=== PATIENT | female | born 1990 | race Caucasian/White ===

== ENCOUNTER 2019-02-06 07:03 | Outpatient (CLI) | payer OTHER ==
--- NOTE | 2019-02-06 08:08 | MRI ---
MRI lumbar spine noncontrast: HISTORY: Lumbar radicular pain. Symptoms times a few months COMPARISON: None FINDINGS: Appropriate T1 marrow signal intensity lumbar vertebra. Lumbar spine vertebral body height is [place]. There is no fracture. No significant STIR hyperintensity to suggest vertebral body edema or ligamentous injury Appropriate signal intensity paraspinal muscles Visualized solid organs of appropriate signal intensity Conus medullaris terminates at the inferior aspect of L1 T12-L1:Adequate disc hydration. No significant central canal stenosis or neural foraminal narrowing L1-L2:Adequate disc hydration. No significant central canal stenosis or neural foraminal narrowing L2-L3:Adequate disc hydration. No significant central canal stenosis or neural foraminal narrowing L3-L4:Small central disc protrusion without significant central canal stenosis. Minimal ligament flav um thickening. Neural foramina are patent. L4-L5:Mild desiccation with mild loss of disc space height. Generalized disc bulge with a central and inferior disc protrusion. Mild stenosis of the thecal sac. Right subarticular zone is unremarkable. Partial obscuration the traversing left L5 nerve root secondary to narrowing of the lef t subarticular zone. Neural foramina are patent bilaterally. L5-S1:Desiccation with mild loss of disc space height. There is a central disc protrusion which is valentino perimposed upon a generalized disc bulge. There is a subtle T2 and STIR hyperintense focus along the posterior inferior aspect of the annulus, compatible with annular fissure. No significant central canal stenosis. Minimal left subarticular zone narrowing without obscuration the traversing left S1 nerve root. Mild bilateral foraminal narrowing. IMPRESSION: 1. Narrowing of the left subarticular zone with partial obscuration the traversing left L5 nerve sunday t 2. Small annular fissure superimposed involving the L5-S1 disc space. No associated significant cent ral canal stenosis.
== END 2019-02-06 07:04 | disposition home or self-care (01) ==
LOC: SCSMRI 07:03
PROVIDERS: ATTEND Nurse Practitioner Family
DX: M54.16 Radiculopathy, lumbar region (principal); M48.061 Spinal stenosis, lumbar region without neurogenic claudication
CPT/HCPCS: 72148